=== PATIENT | female | born 1995 | race Caucasian/White ===

== ENCOUNTER 2017-09-18 15:13 | Emergency (ER) | payer BC, OTHER ==
[2017-09-18 16:07] LABS: #Basophils 0.1 thou/uL (0.0-0.2); #Eosinphils 0.5 thou/uL (0.0-0.7); #Monocytes 1.1 thou/uL (0.11-0.59); #Neutrophils 9.7 thou/uL (1.40-6.50); %Lymphocytes 15.1 % (21.0-51.0); %Monocytes 7.9 % (0.0-10.0); %Neutrophils 72.1 % (42.0-75.0); Hemoglobin 13.8 g/dL (12.0-16.0); Mean Corpuscular HGB CONC 34.2 g/dL (32.0-36.0); Mean Corpuscular Hemoglobin 29.4 pg (27.0-31.0); Mean Platelet Volume 11.2 fL (7.4-10.4); Platelet Count 219 thou/uL (130-400); RBC Distribution Width 11.2 % (11.5-14.5); Red Blood Cell (RBC) Count 4.71 mill/uL (4.20-5.40); White Blood Cell (WBC) Count 13.4 thou/uL (4.8-10.8)
[2017-09-18 16:14] LABS: BHCG - Serum Negative (NEGATIVE); Pregs Control Background? CLEAR/WHITE (CLR/WHITE); Pregs Control Bar Appear? YES (CONTROL BAR)
[2017-09-18 16:19] LABS: Anion Gap 16 mmol/L (10-20); BUN (Urea Nitrogen) 5 mg/dL (7.0-18.7); Calc. Creatinine Clearance 0 mL/min (70-130); Calcium 9.5 mg/dL (7.8-10.44); Carbon Dioxide 20 mmol/L (22-29); Chloride 106 mmol/L (98-107); Estimated GFR-MDRD Greater than 90; Glucose 87 mg/dL (70-105); Potassium 3.7 mmol/L (3.5-5.1); Sodium 138 mmol/L (136-145)
--- NOTE | 2017-09-18 17:23 | CT ---
CT OF FACIAL BONES PERFORMED WITH INTRAVENOUS CONTRAST ENHANCEMENT: 09/18/17 HISTORY: Left sided facial swelling. Patient has a history of maxillofacial surgery. There is soft tissue asymmetry and edema with low attenuation focus of change which is just to the le ft of the nose directly anterior to the maxilla. Within this area is a central low attenuation area m easuring 11 mm which could be a developing focus of abscess collection or induration. Directly adjace nt to this area is evidence of previous surgery with small screws that have been placed in the anter ior maxillary wall which are very close to this location. 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 There is obstruction of the ostium region but there has been what ap pears to be a surgical change along the medial wall of the left maxilla. The mucosal change extends i nto the left ethmoid air cells which are completely opacified and shows some enhancement. There is co mplete obstruction of the sphenoethmoid recess and complete opacification of the left maxillary sinus . Lesser changes of the right maxillary sinus and right ethmoid air cells are noted. There is chronic appearing defect seen along the anterior maxilla within the midline. There appears to be some bony dehiscence to the anterior wall of the left maxilla associated with all these findings. IMPRESSION: Areas of inflammation and what may be a developing focus of abscess seen directly anterior to the mor e inferior margin of the left maxillary sinus. There is a bony defect which may represent a surgical area or area of bony dehiscence associated with this and there is postop changes also seen in this ar eas. There is underlying maxillary sinus mucosal disease as discussed above and changes that would real ggest polypoid changes of the left maxillary ostium and ethmoid air cell complex with obstruction to the left sphenoid sinus. POS: ROGELIO
[2017-09-18] MEDS ORDERED: HYDROcodone/Acetaminophen 7.5/325 mg Tablet ONE (17:39)
== END 2017-09-18 17:43 | disposition home or self-care (01) ==
LOC: SCSER 15:13
DX: L03.211 Cellulitis of face (principal)
CPT/HCPCS: 70487; 80048; 84703; 85025

== ENCOUNTER 2025-07-27 16:45 | Emergency (ER) | payer BC, OTHER | END 2025-07-27 17:30 | disposition home or self-care (01) | LOC: ERS 16:45 | DX: S60.411A Abrasion of left index finger, initial encounter (principal); W20.8XXA Other cause of strike by thrown, projected or falling object, initial encounter; Z23 Encounter for immunization | CPT/HCPCS: 90471; 90715 ==